=== PATIENT | female | born 1965 | race Caucasian/White ===

== ENCOUNTER 2025-01-23 08:49 | Inpatient (IN) ==
--- NOTE | 2025-01-23 09:31 | Emergency Department Note ---
Impression & Plan Acute confusion ED Provider Note HISTORY OF PRESENT ILLNESS: Patient is a 59-year-old female presenting with confusion and weakness. Patient presented to the ER with a colleague who brought her here. Colleague reports that the patient showed up for work today and was stumbling around and holding onto things and seemed very confused. She reports that patient is normally alert and oriented. Reports her speech seems slower than normal. Patient reports that she has a history of migraines and reports that she has a slight headache. Reports that she sees black spots in her vision, but states this is not abnormal when she gets a migraine headache. Denies any recent falls or head injuries. Denies any chiropractic manipulation of her neck. She reports that "I feel weak and numb all over." Denies any recent changes to medications. Denies any chest pain or shortness of breath. Patient denies any alcohol or drug use. Coworker reports that the patient does not seem like her normal self. ROS: as above PHYSICAL EXAM: Constitutional: Patient appears in no acute distress. HENT: Head: Normocephalic and atraumatic. Eyes: EOMI, PERRL Mouth/Throat: Mucous membranes moist. Neck: Trachea midline. Neck supple. Cardiovascular: RRR, No murmurs, rubs or gallops. Intact distal pulses. Pulmonary/Chest: No respiratory distress. Breath sounds clear and equal bilaterally. No wheezes or rales. Abdominal: Abdomen soft, no tenderness, rebound or guarding. Musculoskeletal: No edema, tenderness or deformity noted. Skin: Warm and dry. No rash, erythema, pallor or cyanosis Psychiatric: Appropriate mood and affect for situation. Neurological: Alert and keenly responsive. Facies symmetric. Able to raise eyebrows, close eyes, smile, puff mouth, stick out tongue, move tongue left and right and raise palate symmetrically. Able to shrug shoulders. PERRLA. SILT to forehead below eye and at jawline. Can hear soft noise bilaterally. Strength 5/5 in bilateral upper and lower extremities. SILT throughout bilateral upper and lower extremities. MDM: - Vitals signs showed hypertension - History obtained via patient and patient's coworker. History as above. - Chronic conditions affecting care: Anxiety; DM-2; HLD; hypothyroidism; GERD; migraine headaches - Differential diagnoses include, but are not limited to: CVA; intracranial hemorrhage; ACS; electrolyte abnormality; pneumonia; viral syndrome; UTI - Order placed for continuous cardiac monitoring. At this time, monitor showed rate of 74 bpm with normal sinus rhythm, per my interpretation. - External medical records reviewed. - EKG image interpreted by myself showed normal sinus rhythm. Rate 72 bpm. QTc 408. No acute ischemic changes. - Laboratory workup interpreted by myself showed slight leukocytosis (WBC 11.35) with neutrophil predominance; normal PT/INR; stable electrolytes; elevated TSH (4.815) with rea T4; negative alcohol - UA negative for infection - UDS negative - CXR image reviewed by myself is negative for pneumonia, per my interpretation. - CT head wo contrast negative for acute pathology - CTA head/neck negative for acute pathology - NIHSS 0 on assessment. Patient is no evidence of large vessel occlusion warranting transfer for thrombectomy. She is not a TNK candidate, as unknown last known well. - Patient given 1g IV tylenol in ER. - On reassessment, significant other is now at bedside reports the patient still does not seem back to her normal baseline. Unclear etiology for the patient's symptoms at this time. Discussed admission to hospital for further evaluation and management to which the patient and her significant other were agreeable. - Discussion was had with case investigator about patient's case and need for admission - Hospitalist consulted for admission - Patient admitted to [facility] for further evaluation and management. ASSESSMENT AND PLAN: Diagnosis: Acute confusion Plan: Discharge Past Med/Surg History Problem List (Updated 01/23/25 @ 12:39 by Cheyenne Calle MD) Acute confusion (Acute) Dyslipidemia (Chronic) GERD (gastroesophageal reflux disease) (Chronic) Anxiety (Chronic) Diabetes (Chronic) Migraine (Chronic) H/O allergy to multiple drugs (Chronic) Allergic rhinitis (Chronic) Hypothyroid (Chronic) Medical History Allergic rhinitis Anxiety Diabetes Dyslipidemia GERD (gastroesophageal reflux disease) H/O allergy to multiple drugs Hypothyroid Migraine Surgical History History of dilatation and curettage History of tonsillectomy and adenoidectomy History of tubal ligation Family History Family/Other Asthma Hypertension Arthritis Stroke Diabetes COPD (chronic obstructive pulmonary disease) Cancer CHF (congestive heart failure) Kidney disease Social History Smoking Status: Never smoker Hx Alcohol Use: No Hx Substance Use: No Preferred Language: Yakut marital status: Feels Safe at Home: Yes Allergies Allergies Allergy/AdvReac Type Severity Reaction Status Date / Time adhesive Allergy Unknown contact Verified 11/18/19 15:13 dermatitis latex Allergy Unknown contact Verified 11/18/19 15:13 dermatitis propoxyphene Allergy Unknown Unknown Verified 11/18/19 15:13 Sulfa (Sulfonamide Allergy Unknown Unknown Verified 11/18/19 15:13 Antibiotics) Home Meds Home Medications Medication Instructions Recorded Confirmed cyanocobalamin (vitamin B-12) 1,000 mcg PO DAILY 02/12/19 11/18/19 1,000 mcg tablet (Vitamin B-12) fluticasone propionate 50 1 spray intranasal DAILY 02/12/19 11/18/19 mcg/actuation nasal spray,suspension (Flonase Allergy Relief) levothyroxine 75 mcg capsule 75 mcg PO DAILY 02/12/19 11/18/19 omeprazole 40 mg capsule,delayed 40 mg PO DAILY 02/12/19 11/18/19 release progesterone micronized 100 mg 100 mg vaginal Q OTHER DAY 02/12/19 11/18/19 capsule (Prometrium) propranolol 40 mg tablet 40 mg PO DAILY 02/12/19 11/18/19 sumatriptan succinate 100 mg 100 mg PO UD PRN Migraine Headache 02/12/19 11/18/19 tablet (Imitrex) vitamin B complex 1 tab PO DAILY 02/12/19 11/18/19 albuterol sulfate 0.63 mg/3 mL 0.63 mg inhalation QID PRN 09/22/19 11/18/19 solution for nebulization albuterol sulfate 90 mcg/actuation 2 puffs inhalation Q4H PRN 09/22/19 11/18/19 breath activated powder inhaler,sensor citalopram 40 mg tablet 40 mg PO DAILY 09/22/19 11/18/19 Lactobacillus acidophilus 2 ea PO 11/18/19 11/18/19 atorvastatin 40 mg tablet 40 mg PO .COMPLEX 11/18/19 11/18/19 multivitamin 2 tab PO DAILY 11/18/19 11/18/19 Previous Rx's Medication Instructions Recorded ipratropium bromide 42 mcg (0.06 2 spray intranasal TID #15 mL 10/28/19 %) nasal spray hydroxyzine HCl 25 mg tablet 25 mg PO .qhs itching #30 tabs 11/18/19 olopatadine 0.1 % eye drops 1 drops ophthalmic (eye) BID #5 mL 11/18/19 (Patanol) Results & Data (ED) Vital Signs Vital Signs - 24 hr 01/23/25 08:56 01/23/25 08:56 01/23/25 09:00 Temperature 37.0 C Temperature Source Oral Pulse Rate 75 Pulse Rate from SpO2 Sensor Pulse Rhythm Respiratory Rate 21 Respiratory Effort / Characteristics Non-Labored Spontaneous Respiratory Depth Normal Blood Pressure 172/98 H 172/98 H 177/105 H Blood Pressure Mean 122 122 140 Pulse Oximetry 96 Oxygen Delivery Method Room Air Sepsis Recent Fever Within 48 Hours No Sepsis New/Unexplained Change in Mental Status N/A Sepsis Action Taken by Nursing No Action Required 01/23/25 09:01 01/23/25 09:01 01/23/25 09:12 Temperature Temperature Source Pulse Rate 75 75 73 Pulse Rate from SpO2 Sensor 73 Pulse Rhythm Regular Respiratory Rate 21 19 Respiratory Effort / Characteristics Respiratory Depth Blood Pressure Blood Pressure Mean Pulse Oximetry 96 95 Oxygen Delivery Method Room Air Sepsis Recent Fever Within 48 Hours Sepsis New/Unexplained Change in Mental Status Sepsis Action Taken by Nursing 01/23/25 09:33 01/23/25 10:00 01/23/25 10:36 Temperature Temperature Source Pulse Rate 74 70 74 Pulse Rate from SpO2 Sensor 74 70 75 Pulse Rhythm Respiratory Rate 24 22 21 Respiratory Effort / Characteristics Respiratory Depth Blood Pressure 141/82 H 145/93 H Blood Pressure Mean 101 115 Pulse Oximetry 95 94 96 Oxygen Delivery Method Sepsis Recent Fever Within 48 Hours Sepsis New/Unexplained Change in Mental Status Sepsis Action Taken by Nursing 01/23/25 11:00 01/23/25 11:30 Temperature Temperature Source Pulse Rate 72 74 Pulse Rate from SpO2 Sensor 72 75 Pulse Rhythm Respiratory Rate 22 24 Respiratory Effort / Characteristics Respiratory Depth Blood Pressure 136/77 128/88 Blood Pressure Mean 96 115 Pulse Oximetry 94 95 Oxygen Delivery Method Sepsis Recent Fever Within 48 Hours Sepsis New/Unexplained Change in Mental Status Sepsis Action Taken by Nursing Laboratory Data 01/23/25 09:15 01/23/25 09:15 Lab Results 01/23/25 01/23/25 01/23/25 Range/Units 08:56 09:15 09:25 WBC 11.35 H (4.8-10.8) K/ul RBC 4.89 (4.20-5.40) M/uL Hgb 15.3 (12.0-16.0) g/dl Hct 46.0 (37.0-47.0) % MCV 94.1 (80.0-100.0) fL MCH 31.3 (25.0-34.0) pg MCHC 33.3 (32.0-36.0) g/dL RDW Std Deviation 45.2 (36.4-46.3) fL RDW Coeff of Latrice 13.2 (11.5-14.5) % Plt Count 376 (130-400) K/uL MPV 9.9 (9.4-12.4) fL Immature Gran % (Auto) 0.4 % Neut % (Auto) 67.9 % Lymph % (Auto) 24.6 % Nye % (Auto) 5.0 % Eos % (Auto) 1.7 % Baso % (Auto) 0.4 % Neut # (Auto) 7.70 H (1.40-6.50) K/uL Lymph # (Auto) 2.79 (1.20-3.40) K/uL Nye # (Auto) 0.57 (0.11-0.59) K/uL Eos # (Auto) 0.19 (0.00-0.50) K/uL Baso # (Auto) 0.05 (0.00-0.20) K/uL Immature Gran # (Auto) 0.05 (0.01-0.20) K/uL PT 10.3 (9.0-12.0) Seconds INR 0.9 (0.9-1.1) Sodium 138 (136-145) mmol/L Potassium 4.0 (3.5-5.1) mmol/L Chloride 104 (98-107) mmol/L Carbon Dioxide 27 (21-32) mmol/L Anion Gap 7 (3-11) BUN 15 (6-23) mg/dl Creatinine 0.97 (0.6-1.2) mg/dl Est Cr Clr Drug Dosing 68.1 ml/min eGFR 66.48 BUN/Creatinine Ratio 15.5 (10-20) Glucose 177 H (70-99(Fasting)) mg/dl POC Glucose 290 H (70-99) mg/dl Calcium 9.2 (8.6-10.3) mg/dl Magnesium 2.0 (1.7-2.4) mg/dl Total Bilirubin 0.4 (0.2-1.0) mg/dl AST 13 (13-39) U/L ALT 12 (7-52) U/L Alkaline Phosphatase 68 (34-104) U/L Troponin I High Sens 2.5 (0-14) pg/ml Total Protein 7.3 (6.0-8.3) gm/dl Albumin 4.7 (3.4-5.0) gm/dl Globulin 2.6 (2.5-4.0) gm/dl Albumin/Globulin Ratio 1.8 (0.9-2) TSH 4.815 H (0.300-4.500) uIu/ml Free T4 1.04 (0.61-1.60) ng/dl Urine Color Dark Yellow Urine Appearance Clear (Clear) Urine pH 7.5 (4.5-7.5) Ur Specific Taylor 1.026 (1.000-1.030) Urine Protein Negative (Negative) Urine Glucose (UA) 3+ H (Negative) Urine Ketones Trace H (Negative) Urine Blood Negative (Negative) Urine Nitrite Negative (Negative) Urine Bilirubin Negative (Negative) Urine Urobilinogen Positive H (Negative) Ur Leukocyte Esterase Negative (Negative) Urine Opiates Screen Neg (Neg) Ur Methadone, Qual Neg (Neg) Urine Fentanyl Screen Neg (Neg) Urine Barbiturates Neg (Neg) Ur Phencyclidine (PCP) Neg (Neg) U Amphetamin/Meth Scrn Neg (Neg) MDMA (Ecstasy) Screen Neg (Neg) U Benzodiazepines Scrn Neg (Neg) Ur Cocaine Metabolite Neg (Neg) U Marijuana (THC) Screen Neg (Neg) Ethyl Alcohol mg/dL < 10.0 (<10.0) mg/dl Administered Medications Discontinued Medications Acetaminophen (Ofirmev) 1,000 mg in 100 mls @ 400 mls/hr IV NOW STA Stop: 01/23/25 12:04 Last Admin: 01/23/25 12:05 Dose: 400 mls/hr Documented By: DARLEEN Ioversol (Optiray 320 125ml) 119 ml IV ONCE ONE Stop: 01/23/25 10:29 Last Admin: 01/23/25 10:28 Dose: 119 ml Documented By: YANELI Imaging Data Radiologist's Impression: Chest X-Ray 01/23/25 09:01 XR chest 1V portable CLINICAL HISTORY: confusion COMPARISON STUDY: None FINDINGS: Heart size and pulmonary vasculature are normal. No effusion, consolidation, or pneumothorax. IMPRESSION: No acute findings. ACT 112: Negative or not required by law. Electronically signed by: Brandan Maya M.D. 01/23/2025 9:[address] 01/23/25 09:01 CT SCAN OF THE BRAIN WITHOUT IV CONTRAST CLINICAL HISTORY: Weakness, numbness and headache. COMPARISON STUDY: Head CT September 30, 2021. TECHNIQUE: Unenhanced axial CT scan of the brain was performed from the vertex to the skull base. A dose lowering technique was utilized adhering to the principles of ALARA. FINDINGS: Brain parenchyma: No acute intracranial hemorrhage, midline shift or mass effect is present. Sauceda-white matter differentiation is preserved. There are no extra- axial fluid collections. There are no findings to suggest acute dural sinus thrombosis or acute territorial infarct. Ventricles, sulci, cisterns: There is no hydrocephalus. The basal cisterns are patent. Calvarium: Unremarkable. Sinuses and mastoids: There is mild mucosal thickening of the right sphenoid sinus and mild right ethmoid sinus mucosal thickening. The mastoid air cells are well pneumatized. Orbits: The bony orbits are grossly intact. IMPRESSION: No acute intracranial findings. ACT 112: Negative or not required by law. Electronically signed by: Power Delarosa M.D. 01/23/2025 10:39 AM Head CTA 01/23/25 09:01 CTA ANGIOGRAPHY OF THE HEAD CLINICAL HISTORY: confusion; weakness COMPARISON STUDY: Head CT September 30, 2021. TECHNIQUE: Helical axial images of the head were obtained following uneventful intravenous administration of 119 cc of Optiray. Sagittal and coronal reconstructions were viewed as well as maximal intensity projections on an independent 3-D workstation. Automated exposure control was utilized for the study. A dose lowering technique was utilized adhering to the principles of ALARA. FINDINGS: Please note that the head CT will be reported separately. No acute intracranial hemorrhage, midline shift or mass effect is present. Ventricular system is normal. Basal cisterns are patent. There are no extra-axial collections. The bilateral M1, M2, A1 and A2 segments are patent. No intracranial aneurysm, dissection or stenosis. The posterior circulation is also intact. IMPRESSION: Unremarkable CTA of the head. ACT 112: Negative or not required by law. Electronically signed by: Power Delarosa M.D. 01/23/2025 11:22 AM Neck CTA 01/23/25 09:01 CT ANGIOGRAPHY OF THE NECK WITH CONTRAST CLINICAL HISTORY: confusion; weakness COMPARISON STUDY: CT of the cervical spine September 30, 2021. Technique: CT angiography of the carotid and vertebral arteries was obtained using Optiray and 3D reconstruction on an independent workstation. NASCET criteria was utilized. Automated exposure control was utilized for the study. A dose lowering technique was utilized adhering to the principles of ALARA. CT DOSE: 999.42 mGy.cm Findings: Visualized portions of the lung apices are unremarkable. There is no cervical spine fracture. No cervical lymphadenopathy is identified. The bilateral common carotid, cervical internal carotid and vertebral arteries are patent. There is no stenosis, dissection or aneurysm within the neck. IMPRESSION: Unremarkable CTA of the neck. ACT 112: Negative or not required by law. Electronically signed by: Power Delarosa M.D. 01/23/2025 11:20 AM Discharge Plan Visit Data Chief Complaint: Weakness Stated Complaint: NUMBNESS, WEAK, TIA SYMPTOMS ED Provider: Cheyenne Calle Discharge Problem: Acute confusion Patient Disposition: Admitted As Inpatient Condition: Fair Forms Stand Alone Forms: [facility] Prescriptions Prescriptions: No Action ipratropium bromide 42 mcg (0.06 %) spray,non-aerosol 2 spray INTNAS TID Qty: 15 11RF albuterol sulfate 90 mcg/actuation aero powdr breath act w/sensor 2 puffs INH Q4H PRN albuterol sulfate 0.63 mg/3 mL solution for nebulization 0.63 mg INH QID PRN citalopram 40 mg tablet 40 mg PO DAILY atorvastatin 40 mg tablet 40 mg PO .COMPLEX Rx Instructions: 40 mg PO Take 1/2 tab Daily; Lactobacillus acidophilus 2 ea PO hydroxyzine HCl 25 mg tablet 25 mg PO .qhs Qty: 30 11RF olopatadine [Patanol] 0.1 % drops 1 drops OP BID Qty: 5 11RF Rx Instructions: separate doses by at least 6-8 hours sumatriptan succinate [Imitrex] 100 mg Tablet 100 mg PO UD PRN (Reason: Migraine Headache) cyanocobalamin (vitamin B-12) [Vitamin B-12] 1,000 mcg Tablet 1,000 mcg PO DAILY omeprazole 40 mg Capsule,Delayed Release(Dr/Ec) 40 mg PO DAILY propranolol 40 mg Tablet 40 mg PO DAILY vitamin B complex Tablet 1 tab PO DAILY fluticasone propionate [Flonase Allergy Relief] 50 mcg/actuation [place]iden,Suspension 1 spray INTRANASAL DAILY progesterone micronized [Prometrium] 100 mg Capsule 100 mg vaginal Q OTHER DAY levothyroxine 75 mcg Capsule 75 mcg PO DAILY multivitamin Tablet 2 tab PO DAILY Referrals Referrals: Jasmyn Corral M.D. [Primary Care Provider] -
--- NOTE | 2025-01-23 09:37 | XRay Report ---
XR chest 1V portable CLINICAL HISTORY: confusion COMPARISON STUDY: None FINDINGS: Heart size and pulmonary vasculature are normal. No effusion, consolidation, or pneumothora x. IMPRESSION: No acute findings. ACT 112: Negative or not required by law. Electronically signed by: Brandan Maya M.D. 01/23/2025 9:36 AM
[2025-01-23 09:54] LABS: Appearance Urine Clear (Clear); Bilirubin Urine Negative (Negative); Blood Urine Negative (Negative); Color Urine Dark Yellow; Glucose Urine UA 3+ (Negative); Ketones Urine Trace (Negative); Leukocyte Esterase Urine Negative (Negative); Nitrite Urine Negative (Negative); Protein Urine Negative (Negative); Specific Gravity Urine 1.026 (1.000-1.030); Urobilinogen Urine Positive (Negative); pH Urine 7.5 (4.5-7.5)
[2025-01-23 09:56] LABS: Basophils # (auto) 0.05 K/uL (0.00-0.20); Basophils % (auto) 0.4 %; Eosinophils # (auto) 0.19 K/uL (0.00-0.50); Eosinophils % (auto) 1.7 %; Hemoglobin 15.3 g/dl (12.0-16.0); Immature Granulocytes # (auto) 0.05 K/uL (0.01-0.20); Immature Granulocytes % (auto) 0.4 %; Lymphocytes # (auto) 2.79 K/uL (1.20-3.40); Lymphocytes % (auto) 24.6 %; Mean Corpuscular Hemoglobin 31.3 pg (25.0-34.0); Mean Corpuscular Hgb Conc 33.3 g/dL (32.0-36.0); Mean Corpuscular Volume 94.1 fL (80.0-100.0); Mean Platelet Volume 9.9 fL (9.4-12.4); Monocytes # (auto) 0.57 K/uL (0.11-0.59); Neutrophils % (auto) 67.9 %; Platelet Count 376 K/uL (130-400); RDW Coefficient of Variation 13.2 % (11.5-14.5); RDW Standard Deviation 45.2 fL (36.4-46.3); Red Blood Count 4.89 M/uL (4.20-5.40); White Blood Count 11.35 K/ul (4.8-10.8)
[2025-01-23 10:12] LABS: Albumin Globulin Ratio 1.8 (0.9-2); Albumin Level 4.7 gm/dl (3.4-5.0); BUN Creatinine Ratio 15.5 (10-20); Bilirubin,Total 0.4 mg/dl (0.2-1.0); Calcium 9.2 mg/dl (8.6-10.3); Creatinine Clr Calc Pharmacy 68.1 ml/min; Globulin 2.6 gm/dl (2.5-4.0); Total Protein 7.3 gm/dl (6.0-8.3)
[2025-01-23 10:19] LABS: Troponin I High Sensitivity 2.5 pg/ml (0-14)
[2025-01-23 10:25] LABS: INR 0.9 (0.9-1.1); Prothrombin Time 10.3 Seconds (9.0-12.0)
[2025-01-23 10:28] LABS: Thyroid Stimulating Hormone 4.815 uIu/ml (0.300-4.500)
[2025-01-23] MEDS: OPTIRAY 320 125ml IV ONE (10:28)
[2025-01-23 10:38] LABS: Amphetamines+Metham, Urine Neg (Neg); Barbiturates, Urine Neg (Neg); Benzodiazepine, Urine Neg (Neg); Cocaine, Urine Neg (Neg); Fentanyl, Urine Neg (Neg); MDMA (Ecstacy), Urine Neg (Neg); Marijuana, Urine Neg (Neg); Methadone, Urine Neg (Neg); Opiate, Urine Neg (Neg); Phencyclidine, Urine Neg (Neg)
--- NOTE | 2025-01-23 10:41 | CT Scan Report ---
CT SCAN OF THE BRAIN WITHOUT IV CONTRAST CLINICAL HISTORY: Weakness, numbness and headache. COMPARISON STUDY: Head CT September 30, 2021. TECHNIQUE: Unenhanced axial CT scan of the brain was performed from the vertex to the skull base. A dose lowering technique was utilized adhering to the principles of ALARA. FINDINGS: Brain parenchyma: No acute intracranial hemorrhage, midline shift or mass effect is present. Sauceda-whi te matter differentiation is preserved. There are no extra-axial fluid collections. There are no find ings to suggest acute dural sinus thrombosis or acute territorial infarct. Ventricles, sulci, cisterns: There is no hydrocephalus. The basal cisterns are patent. Calvarium: Unremarkable. Sinuses and mastoids: There is mild mucosal thickening of the right sphenoid sinus and mild right eth moid sinus mucosal thickening. The mastoid air cells are well pneumatized. Orbits: The bony orbits are grossly intact. IMPRESSION: No acute intracranial findings. ACT 112: Negative or not required by law. Electronically signed by: Power Delarosa M.D. 01/23/2025 10:39 AM
[2025-01-23 11:03] LABS: T4 Free Thyroxine 1.04 ng/dl (0.61-1.60)
--- NOTE | 2025-01-23 11:22 | CT Scan Report ---
CT ANGIOGRAPHY OF THE NECK WITH CONTRAST CLINICAL HISTORY: confusion; weakness COMPARISON STUDY: CT of the cervical spine September 30, 2021. Technique: CT angiography of the carotid and vertebral arteries was obtained using Optiray and 3D rec onstruction on an independent workstation. NASCET criteria was utilized. Automated exposure control was utilized for the study. A dose lowering technique was utilized adhering to the principles of ALA RA. CT DOSE: 999.42 mGy.cm Findings: Visualized portions of the lung apices are unremarkable. There is no cervical spine fractur e. No cervical lymphadenopathy is identified. The bilateral common carotid, cervical internal carotid and vertebral arteries are patent. There is no stenosis, dissection or aneurysm within the neck. IMPRESSION: Unremarkable CTA of the neck. ACT 112: Negative or not required by law. Electronically signed by: Power Delarosa M.D. 01/23/2025 11:20 AM
--- NOTE | 2025-01-23 11:24 | CT Scan Report ---
CTA ANGIOGRAPHY OF THE HEAD CLINICAL HISTORY: confusion; weakness COMPARISON STUDY: Head CT September 30, 2021. TECHNIQUE: Helical axial images of the head were obtained following uneventful intravenous administr ation of 119 cc of Optiray. Sagittal and coronal reconstructions were viewed as well as maximal inten sity projections on an independent 3-D workstation. Automated exposure control was utilized for the study. A dose lowering technique was utilized adhering to the principles of ALARA. FINDINGS: Please note that the head CT will be reported separately. No acute intracranial hemorrhage, midline shift or mass effect is present. Ventricular system is normal. Basal cisterns are patent. Th ere are no extra-axial collections. The bilateral M1, M2, A1 and A2 segments are patent. No intracran ial aneurysm, dissection or stenosis. The posterior circulation is also intact. IMPRESSION: Unremarkable CTA of the head. ACT 112: Negative or not required by law. Electronically signed by: Power Delarosa M.D. 01/23/2025 11:22 AM
[2025-01-23] MEDS: ACETAMINOPHEN 1,000 MG/100 ML VIAL IV STA (12:05)
--- NOTE | 2025-01-23 14:35 | History & Physical Report ---
Date of Service January 23, 2025 Assessment & Plan (1) Acute confusion: Plan: 59 year old female with PMH DM Type II, Asthma, Hypothyroidism, Migraines presenting with weakness, confusion, fatigue. Brought to the ED by co-workers for stumbling gait, slow to respond to questions for several hours and possible numbness stating her legs felt heavy. Has been ill for several months including Flu A+ in October, then developed Bronchitis and treated with Azithromycin with brief relief of symptoms. Covid neg during this time. She was prescribed 3 separate courses of Prednisone since late October with the last dose finishing yesterday. Reports frontal headache,worse with leaning forward, fever, productive cough, N/V, ear pain. Symptoms not improving with OTC mucinex, dayquil, nyquil. Has been taking these for over 1 week. Denies recent medication changes, falls, head injuries, dizziness, vision/hearing changes, memory issues, numbness/tingling, difficulty walking, sick contacts, chest pain, swelling, difficulty breathing, SOB, diarrhea, urinary symptoms, skin changes, bleeding issues. Acute Confusion: * Acute confusion likely in the setting of stroke vs illness * Initiate Stroke protocol: Echo, lipids, VBG, Phos, Mag * Echo ordered- pending * MRI of Head w/wo contrast for further stroke workup * Neuro checks Q4 hours and as needed * Given prolonged illness and mildly elevated WBC 11.35- it is reasonable to investigate alternate sources of confusion- Biofire ordered * XRay Sinus ordered with report of maxillary sinus pain * Other labs to obtain- ammonia, procalcitonin, lyme * IV fluids NSS scheduled for rehydration * Consider antibiotics pending labs and further imaging (2) Dyslipidemia: Plan: Dyslipidemia: * Lipids pending * Continue home statin therapy (3) Diabetes: Plan: Diabetes * Hold Ozempic, last given last week * Random glucose elevated in the ED most likely from prolonged steroid treatment * Previous A1C unknown- patient reports history of oral anti-diabetics med management without insulin * Will check A1C in the morning (4) Hypothyroid: Plan: Hypothyroidism: * Continue home levothyroxine * TSH 4.8, free T4 normal Plan DVT Ppx: SCD-Hermes stockings Code status: Full PCP: Receives care via [facility] Dispo: Admit to [facility] Tele Patient seen in collaboration with _Dr. Colon_. Please see addendum.I spent a total of 78 minutes coordinating, documenting and providing care for this patient excluding time spent in the performance of separately billed services or time spent by another provider/QHP. History of Present Illness Chief Complaint: Confusion Primary Care Provider: Jasmyn Corral 59 year old female with PMH DM Type II, Asthma, Hypothyroidism, Migraines presenting with weakness, confusion, fatigue. Brought to the ED by co-workers for stumbling gait, slow to respond to questions for several hours and possible numbness stating her legs felt heavy. Has been ill for several months including Flu A+ in October, then developed Bronchitis and treated with Azithromycin with brief relief of symptoms. Covid neg during this time. She was prescribed 3 separate courses of Prednisone since late October with the last dose finishing yesterday. Reports frontal headache,worse with leaning forward, fever, productive cough, N/V, ear pain. Symptoms not improving with OTC mucinex, dayquil, nyquil. Has been taking these for over 1 week. Denies recent medication changes, falls, head injuries, dizziness, vision/hearing changes, memory issues, numbness/tingling, difficulty walking, sick contacts, chest pain, swelling, difficulty breathing, SOB, diarrhea, urinary symptoms, skin changes, bleeding issues. In the emergency department, she was slow to respond to questions, confused, weak, and reporting numbness. Hemodynamically stable with a mild elevation in WB C 11.35. Random gluc elevated, possibly following extended course of steroids. UA without signs of infection and with dehydration. Chest Xray negative. Head CT with no acute intracranial findings. Head and Neck CTA unremarkable. Although initially the patient presented with an acute change in mental status, her cognition improved by the time of my exam. She had a harsh, nonproductive cough with no associated hypoxia or distress. She reported maxillary sinus pressure, facial pain, and ear pain warranting further workup with Biofire, Sinus Xray. History obtained from the patient and via external, electronic chart review for medication reconcile; the patient provided her EMR with the [facility]. Allergies Allergy/AdvReac Type Severity Reaction Status Date / Time metronidazole Allergy Severe Hives/Blist Unverified 01/23/25 13:58 ers acetaminophen Allergy Unknown Unknown - Unverified 01/23/25 13:58 [From Darvocet-N] On med list w/ [facility] adhesive Allergy Unknown contact Verified 01/23/25 13:58 dermatitis estrogens, conjugated Allergy Unknown Unknown - Unverified 01/23/25 13:58 [From Premarin] On med [facility] latex Allergy Unknown contact Verified 01/23/25 13:58 dermatitis Penicillins Allergy Unknown Unknown - Unverified 01/23/25 13:58 On med list / [facility] propoxyphene Allergy Unknown Unknown Verified 01/23/25 13:58 Sulfa (Sulfonamide Allergy Unknown Unknown Verified 01/23/25 13:58 Antibiotics) Home Medications Medication Instructions Recorded Confirmed Type fluticasone propionate 50 1 spray intranasal DAILY 02/12/19 01/23/25 History mcg/actuation nasal spray,suspension (Flonase Allergy Relief) progesterone micronized 100 mg 100 mg PO QAM 02/12/19 01/23/25 History capsule (Prometrium) propranolol 40 mg tablet 40 mg PO DAILY 02/12/19 01/23/25 History vitamin B complex 1 tab PO QAM 02/12/19 01/23/25 History multivitamin 1 tab PO DAILY 11/18/19 01/23/25 History Lactobacillus acidophilus 1 2,000 mmu cells PO BID 01/23/25 01/23/25 History billion cell tablet ascorbic acid (vitamin C) 1,000 mg 1 g PO Q OTHER DAY 01/23/25 01/23/25 History tablet (Vitamin C) atomoxetine 80 mg capsule 80 mg PO QAM 01/23/25 01/23/25 History (Strattera) atorvastatin 80 mg tablet 40 mg PO HS 01/23/25 01/23/25 History biotin 5,000 mcg sublingual tablet 5,000 mcg sublingual QA 01/23/25 01/23/25 History cetirizine 10 mg tablet (Zyrtec) 10 mg PO DAILY 01/23/25 01/23/25 History coQ10 (ubiquinol) 200 mg capsule 400 mg PO QA 01/23/25 01/23/25 History fluoxetine 20 mg capsule 20 mg PO DAILY 01/23/25 01/23/25 History levothyroxine 88 mcg tablet 88 mcg PO DAILYBB 01/23/25 01/23/25 History montelukast 10 mg tablet 10 mg PO QAM 01/23/25 01/23/25 History olopatadine 0.1 % eye drops 1 drp ophthalmic (eye) BID 01/23/25 01/23/25 History omeprazole 20 mg capsule,delayed 40 mg PO DAILY 01/23/25 01/23/25 History release psyllium husk 0.52 gram capsule 0.52 g PO QAM 01/23/25 01/23/25 History (Fiber-Caps (psyllium husk)) semaglutide (weight loss) 2.4 2 mg subcut Q7D 01/23/25 01/23/25 History mg/0.75 mL subcutaneous pen injector (Wegovy) simethicone 80 mg chewable tablet 80 mg PO ACHS 01/23/25 01/23/25 History tiotropium 2.5 mcg-olodaterol 2.5 2 puff inhalation DAILY 01/23/25 01/23/25 History mcg/actuation mist for inhalation (Stiolto Respimat) zinc acetate 50 mg (zinc) capsule 50 mg PO QAM 01/23/25 01/23/25 History Past Med/Surg History Problem List Acute confusion (Acute) Dyslipidemia (Chronic) GERD (gastroesophageal reflux disease) (Chronic) Anxiety (Chronic) Diabetes (Chronic) Migraine (Chronic) H/O allergy to multiple drugs (Chronic) Allergic rhinitis (Chronic) Hypothyroid (Chronic) Surgical History History of dilatation and curettage History of tubal ligation History of tonsillectomy and adenoidectomy Family History Family/Other Asthma Hypertension Arthritis Stroke Diabetes COPD (chronic obstructive pulmonary disease) Cancer CHF (congestive heart failure) Kidney disease Social History Smoking Status: Never smoker Hx Alcohol Use: No Hx Substance Use: No Preferred Language: Turkish marital status: Feels Safe at Home: Yes Review of Systems Review of Systems: All systems reviewed & are unremarkable except as noted in HPI & below Physical Exam Physical Exam: VITALS: Reviewed. WEIGHT/BMI reviewed. GEN: Healthy appearing, well-developed, NAD. PSYCH: Good Judgment. AOx3. Normal memory, mood, and affect. HEENT -Head: NC/AT; -Eyes: PERRL, EOMI. No discharge or redn ess; -Ears: External ears are normal. -Nose: Normal nares. No active rhinorrhe a. -Mouth and throat: MMM. Normal gums, muc krupa, palate,. Good dentition. NECK: Supple, with no masses. CV: RRR, no m/r/g. No peripheral swelling. Pulses strong throughout. LUNGS: CTAB, no w/r/c. Pulse ox stable on room air. Harsh cough, nonproductive. ABD: Soft, NT/ND, NBS, no masses or organomegaly. : N/A SKIN: Warm, well perfused. No skin rashes or abnormal lesions. MSK: No deformities EXT: No clubbing, cyanosis, or edema. NEURO: Normal muscle strength and tone. No focal deficits. Facial symmetry noted. CN II-XII grossly intact. Results & Data Results & Data Vital Signs (Past 12 Hours) Vital Signs Temp Pulse Resp BP Pulse Ox O2 Del Method 01/23/25 14:00 72 20 140/81 91 01/23/25 13:39 82 17 126/74 98 01/23/25 13:06 79 01/23/25 13:00 80 15 99/59 L 97 01/23/25 12:03 79 17 137/85 96 01/23/25 11:30 74 24 128/88 95 01/23/25 11:00 72 22 136/77 94 01/23/25 10:36 74 21 96 01/23/25 10:00 70 22 145/93 H 94 01/23/25 09:33 74 24 141/82 H 95 01/23/25 09:12 73 19 95 01/23/25 09:01 75 21 96 Room Air 01/23/25 09:01 75 01/23/25 09:00 177/105 H 01/23/25 08:56 172/98 H 01/23/25 08:56 37.0 C 75 21 172/98 H 96 Room Air Laboratory Results Short CBC 01/23/25 Range/Units 09:15 WBC 11.35 H (4.8-10.8) K/ul Hgb 15.3 (12.0-16.0) g/dl Hct 46.0 (37.0-47.0) % Plt Count 376 (130-400) K/uL BMP 01/23/25 09:15 Sodium 138 Potassium 4.0 Chloride 104 Carbon Dioxide 27 BUN 15 Creatinine 0.97 Glucose 177 H Calcium 9.2 Liver Function 01/23/25 Range/Units 09:15 Total Bilirubin 0.4 (0.2-1.0) mg/dl AST 13 (13-39) U/L ALT 12 (7-52) U/L Alkaline Phosphatase 68 (34-104) U/L Albumin 4.7 (3.4-5.0) gm/dl Urine 01/23/25 Range/Units 09:25 Urine Color Dark Yellow Urine Appearance Clear (Clear) Urine pH 7.5 (4.5-7.5) Ur Specific Success 1.026 (1.000-1.030) Urine Protein Negative (Negative) Urine Glucose (UA) 3+ H (Negative) Diagnostic Findings Chest X-Ray 01/23/25 09:01 XR chest 1V portable CLINICAL HISTORY: confusion COMPARISON STUDY: None FINDINGS: Heart size and pulmonary vasculature are normal. No effusion, consolidation, or pneumothorax. IMPRESSION: No acute findings. ACT 112: Negative or not required by law. Electronically signed by: Brandan Maya M.D. 01/23/2025 9:[address] 01/23/25 09:01 CT SCAN OF THE BRAIN WITHOUT IV CONTRAST CLINICAL HISTORY: Weakness, numbness and headache. COMPARISON STUDY: Head CT September 30, 2021. TECHNIQUE: Unenhanced axial CT scan of the brain was performed from the vertex to the skull base. A dose lowering technique was utilized adhering to the principles of ALARA. FINDINGS: Brain parenchyma: No acute intracranial hemorrhage, midline shift or mass effect is present. Sauceda-white matter differentiation is preserved. There are no extra- axial fluid collections. There are no findings to suggest acute dural sinus thrombosis or acute territorial infarct. Ventricles, sulci, cisterns: There is no hydrocephalus. The basal cisterns are patent. Calvarium: Unremarkable. Sinuses and mastoids: There is mild mucosal thickening of the right sphenoid sinus and mild right ethmoid sinus mucosal thickening. The mastoid air cells are well pneumatized. Orbits: The bony orbits are grossly intact. IMPRESSION: No acute intracranial findings. ACT 112: Negative or not required by law. Electronically signed by: Power Delarosa M.D. 01/23/2025 10:39 AM Head CTA 01/23/25 09:01 CTA ANGIOGRAPHY OF THE HEAD CLINICAL HISTORY: confusion; weakness COMPARISON STUDY: Head CT September 30, 2021. TECHNIQUE: Helical axial images of the head were obtained following uneventful intravenous administration of 119 cc of Optiray. Sagittal and coronal reconstructions were viewed as well as maximal intensity projections on an independent 3-D workstation. Automated exposure control was utilized for the study. A dose lowering technique was utilized adhering to the principles of ALARA. FINDINGS: Please note that the head CT will be reported separately. No acute intracranial hemorrhage, midline shift or mass effect is present. Ventricular system is normal. Basal cisterns are patent. There are no extra-axial collections. The bilateral M1, M2, A1 and A2 segments are patent. No intracranial aneurysm, dissection or stenosis. The posterior circulation is also intact. IMPRESSION: Unremarkable CTA of the head. ACT 112: Negative or not required by law. Electronically signed by: Power Delarosa M.D. 01/23/2025 11:22 AM Neck CTA 01/23/25 09:01 CT ANGIOGRAPHY OF THE NECK WITH CONTRAST CLINICAL HISTORY: confusion; weakness COMPARISON STUDY: CT of the cervical spine September 30, 2021. Technique: CT angiography of the carotid and vertebral arteries was obtained using Optiray and 3D reconstruction on an independent workstation. NASCET criteria was utilized. Automated exposure control was utilized for the study. A dose lowering technique was utilized adhering to the principles of ALARA. CT DOSE: 999.42 mGy.cm Findings: Visualized portions of the lung apices are unremarkable. There is no cervical spine fracture. No cervical lymphadenopathy is identified. The bilateral common carotid, cervical internal carotid and vertebral arteries are patent. There is no stenosis, dissection or aneurysm within the neck. IMPRESSION: Unremarkable CTA of the neck. ACT 112: Negative or not required by law. Electronically signed by: Power Delarosa M.D. 01/23/2025 11:20 AM Sinuses X-Ray 01/23/25 14:11 XR sinus min 3V routine CLINICAL HISTORY: congestion, cough COMPARISON STUDY: Head CT earlier today FINDINGS: The mild mucosal thickening in the right sphenoid air cell seen on the CT earlier today is not visualized by plain film. Paranasal sinuses appear grossly clear. IMPRESSION: Grossly clear paranasal sinuses. ACT 112: Negative or not required by law. Electronically signed by: Brandan aMya M.D. 01/23/2025 3:53 PM Code Status & VTE Plan Code Status Full Code VTE Prophylaxis Plan VTE Prophylaxis will be ordered: Yes Supervising Physician Co-Signing Physician Notes Patient is a 59-year-old female with history of asthma, diabetes mellitus diet- controlled, hypothyroidism, migraine, mood disorder, GERD and other medical problems presents with multiple complaints. She states having ongoing cough, sinus congestion, rhinitis, headache, nausea, vomiting, since many days. She states that she was diagnosed to have influenza A in October and since that time she continued to have bronchitis symptoms. She completed azithromycin course and 3 separate courses of prednisone without much improvement. She was brought into ED today by her coworker for change in mental status, stumbling gait. She describes as "haziness". She also was noted to have slow speech. On my encounter, patient is oriented and she denied no focal weakness, dysarthria, odynophagia, dysphagia, facial deformity. She admits to have some generalized numbness and heaviness of her legs. Please review HPI for complete details of presentation. I personally reviewed blood work and imaging studies. Blood work showed leukocytosis 11.35K, glucose 177, phosphorus 2.0, ammonia normal. TSH mildly elevated, free T4 normal. Procalcitonin, B12 pending. Serology positive for parainfluenza. CT head, CTA head and neck, chest x-ray showed no acute process. Sinus x-ray showed grossly clear paranasal sinuses. EKG showed normal sinus rhythm, QTc 446. Physical Exam: Vitals signs as noted above General Appearance:Moderately built and nourished, no apparent distress Head: normocephalic, Atraumatic, maxillary sinus tender Eyes: normal inspection, EOMI Neck: supple, Trachea midline Respiratory/Chest: Normal breath sounds, CTA, No accessory muscle use Cardiovascular: S1, S2, No murmur, tachycardia Abdomen/GI:Soft, Non tender, Bowel sounds present Extremities/Musculoskeletal:normal inspection, no edema Neurologic/Psych:AAOX3, grossly no focal neurological deficits Skin: normal color, warm Acute bronchitis due to parainfluenza infection Generalized weakness secondary to above Suspected sinusitis Strokelike symptoms--less likely CVA Hypophosphatemia Patient is saturating well on room air Empirically will start on Augmentin Conservative management for parainfluenza infection MRI brain to rule out CVA Leukocytosis likely due to recent prednisone use Lyme screen, B12, procalcitonin, HbA1c pending Will also order an echo, lipid panel for completeness Consider aspirin if MRI suggestive of CVA Replete electrolytes as needed I personally interviewed and examined the patient at bedside. I have reviewed the advanced practitioner's documentation on the date of service referred in note and agree with plan. Patient's care is coordinated with Nellie BROWN. Please refer to the documentation above for details of patient's presentation and for discussion of other issues. I spent a total [id number] coordinating, documenting, and providing care for this patient excluding time spent in the performance of separately billed services or time spent by another provider/QHP.
[2025-01-23 15:11] LABS: Adenovirus PCR Not Detected (NotDetected); Bordetella parapertussis PCR Not Detected (NotDetected); Bordetella pertussis PCR Not Detected (NotDetected); Chlamydia pneumoniae PCR Not Detected (NotDetected); Coronavirus 229E PCR Not Detected (NotDetected); Coronavirus CoV-2 (COVID19)PCR Not Detected (NotDetected); Coronavirus HKU1 PCR Not Detected (NotDetected); Coronavirus NL63 PCR Not Detected (NotDetected); Coronavirus OC43PCR Not Detected (NotDetected); Human Metapneumovirus PCR Not Detected (NotDetected); Influenza A PCR Not Detected (NotDetected); Influenza B PCR Not Detected (NotDetected); Mycoplasma pneumoniae PCR Not Detected (NotDetected); Parainfluenza Virus 1 PCR Not Detected (NotDetected); Parainfluenza Virus 2 PCR Not Detected (NotDetected); Parainfluenza Virus 3 PCR DETECTED (NotDetected); Parainfluenza Virus 4 PCR Not Detected (NotDetected); Respiratory Syncytial VirusPCR Not Detected (NotDetected); Rhinovirus/Enterovirus PCR Not Detected (NotDetected)
--- NOTE | 2025-01-23 15:54 | XRay Report ---
XR sinus min 3V routine CLINICAL HISTORY: congestion, cough COMPARISON STUDY: Head CT earlier today FINDINGS: The mild mucosal thickening in the right sphenoid air cell seen on the CT earlier today is not visualized by plain film. Paranasal sinuses appear grossly clear. IMPRESSION: Grossly clear paranasal sinuses. ACT 112: Negative or not required by law. Electronically signed by: Brandan Maya M.D. 01/23/2025 3:53 PM
[2025-01-23] MEDS ORDERED: ALUMINUM/MAGNESIUM SUSP 30 ML UDC PO PRN (15:58)
[2025-01-23] MEDS ORDERED: MAGNESIUM HYDROXIDE SUSP 30 ML UDC PO PRN (15:58)
[2025-01-23] MEDS ORDERED: POLYETHYLENE (MIRALAX) 17 GM PACK PO PRN (15:58)
[2025-01-23] MEDS ORDERED: ONDANSETRON INJ 2 MG/ML 2 ML VIAL IV PRN (15:58)
[2025-01-23 16:01] LABS: Base Excess VBG -0.2 mEq/L; HCO3 VBG 26 mmol/L; Oxygen Saturation VBG < 60.0 %; PCO2 VBG 47 mmHg (38-50); PO2 VBG 31 mmHg; pH VBG 7.35 (7.36-7.41)
[2025-01-23] MEDS: SODIUM CHLORIDE 0.9% 1,000 ML IV ONE (16:13)
[2025-01-23] MEDS ORDERED: SODIUM PHOSPHATE 3 MMOL/1 ML INFUSION IV ONE (16:30)
[2025-01-23] MEDS ORDERED: LEVALBUTEROL HCL 0.63 MG/3 ML NEB NEB PRN (16:39)
[2025-01-23] MEDS: AMOXICILLIN/CLAVULANATE 875 MG TAB PO SCH (16:46)
[2025-01-23] MEDS: GADOBUTROL 65ML VIAL IV ONE (17:51)
--- NOTE | 2025-01-23 18:08 | XCELERA ---
[id number]
[2025-01-23] MEDS: SODIUM PHOSPHATE 21 MMOL in SODIUM CHLORIDE 0.9% 500 ML IV ONE (18:42)
--- NOTE | 2025-01-23 19:27 | Magnetic Resonance Report ---
EXAM: MR brain IAC wo/w con CLINICAL HISTORY: Mental status change TECHNIQUE: MRI of the brain and IAC was performed with and without intravenous contrast administration 8 mL Gadavist given. Sequences obtained include pre-contrast and post-contrast T1-weighted, T2-weighted, FLAIR (Fluid-Attenuated Inversion Recovery), DWI (Diffusion-Weighted Imaging), and ADC (Apparent Diffusion Coefficient) sequences. COMPARISON: 09/30/2021. FINDINGS: Brain Parenchyma: No evidence of acute infarction or hemorrhage. Sauceda-white matter differentiation is preserved. No abnormal signal-intensity lesions were identified. Post-Contrast Findings: No abnormal enhancement of the brain parenchyma or meninges. Ventricles and Sulci: Ventricular system is within normal limits without evidence of hydrocephalus. Sulci and cisternal spaces are age-appropriate. Brainstem and Cerebellum: Normal appearance of the brainstem and cerebellum without focal lesions or abnormal enhancement. Both internal auditory canals are unremarkable. Vessels: Intracranial vessels appear normal without evidence of vascular malformations or aneurysms. Skull and Calvarium: No evidence of skull vault lesions or abnormal marrow signal within the calvarium. IMPRESSION: 1. Normal brain parenchyma and structures. 2. No evidence of acute intracranial pathology or abnormal contrast enhancement. 3. No interval changes. Electronically signed by Greyson Cr 01-23-2025 7:27 PM
[2025-01-23] MEDS: HEPARIN SOD 5,000 UNIT/0.5 ML VIAL SQ SCH (20:08)
[2025-01-23] MEDS: ATORVASTATIN 40 MG TAB PO SCH (20:09)
[2025-01-23] MEDS: ADVANCED PROBIOTIC 625 MG CAPSULE PO SCH (20:10)
--- NOTE | 2025-01-24 04:42 | Electrocardiogram Report ---
Test Reason : Blood Pressure : */* mmHG Vent. Rate : 72 BPM Atrial Rate : 72 BPM P-R Int : 118 ms QRS Dur : 90 ms QT Int : 408 ms P-R-T Axes : 56 11 36 degrees QTcB Int : 446 ms Normal sinus rhythm Normal ECG When compared with ECG of 01-Aug-2022 20:31, No significant change was found Confirmed by Washington Sainz ([id number]) on 01/24/2025 4:42:06 AM Referred By: REFERRED SELF Confirmed By: Washington Sainz
[2025-01-24] MEDS: LEVOTHYROXINE SODIUM 88 MCG TABLET PO SCH (06:08)
[2025-01-24 07:14] LABS: Hematocrit (blood only) 42.4 % (37.0-47.0); Hemoglobin 14.5 g/dl (12.0-16.0); Mean Corpuscular Hemoglobin 31.4 pg (25.0-34.0); Mean Corpuscular Hgb Conc 34.2 g/dL (32.0-36.0); Mean Corpuscular Volume 91.8 fL (80.0-100.0); Mean Platelet Volume 9.7 fL (9.4-12.4); Platelet Count 330 K/uL (130-400); RDW Coefficient of Variation 13.2 % (11.5-14.5); RDW Standard Deviation 43.9 fL (36.4-46.3); Red Blood Count 4.62 M/uL (4.20-5.40); White Blood Count 9.85 K/ul (4.8-10.8)
[2025-01-24 07:57] LABS: Calcium 8.8 mg/dl (8.6-10.3); Potassium 4.2 mmol/L (3.5-5.1)
[2025-01-24 08:03] LABS: Estimated Average Glucose 154 mg/dl
[2025-01-24 08:05] LABS: BUN Creatinine Ratio 14.5 (10-20); Chol HDL Ratio 3.8 (0-5); Creatinine Clr Calc Pharmacy 86.9 ml/min; Phosphorus 3.8 mg/dl (2.5-4.9)
[2025-01-24] MEDS: PROPRANOLOL HCL 20 MG TAB PO SCH (08:11)
[2025-01-24] MEDS: FLUTICASONE PROPIONATE NA SPR 16 GM BTL SCH (08:11)
[2025-01-24] MEDS: MONTELUKAST SODIUM 10 MG TABLET PO SCH (08:11)
[2025-01-24] MEDS: PANTOprazole 40 MG TAB PO SCH (08:11)
[2025-01-24] MEDS: FLUoxetine HCL 20 MG CAP PO SCH (08:11)
[2025-01-24] MEDS: ATOMOXETINE HCL 40 MG CAPSULE PO SCH (08:12)
[2025-01-24] MEDS: PSYLLIUM or GUAR GUM FIBER 4GM PACKET PO SCH (08:12)
[2025-01-24] MEDS: DEXTROMETHORPHAN POLYMR COMPLX 30 MG/5 ML UDP PO PRN (13:10)
[2025-01-24] MEDS: LEVALBUTEROL 1.25 MG/3 ML NEB NEB SCH (15:31)
--- NOTE | 2025-01-24 15:55 | Hospitalist Progress Note ---
Date of Service January 24, 2025 Assessment & Plan (1) Acute bronchitis: (2) Parainfluenza infection: (3) Acute confusion: Plan: Acute bronchitis due to parainfluenza infection Suspected sinusitis Generalized weakness, acute confusion in the setting of above 5/6 back to baseline mental status Brain MRI: no acute CVA CT angio head and neck: Unremarkable Echocardiogram: Normal LV size, mild concentric LVH LVEF 60 to 65% no regional wall motion abnormalities Normal RV size and function No significant valvular pathology Normal estimated PA and RA pressures for interatrial shunt Respiratory panel:(+)parainfluenza virus CXR: no pneumonia CT head: mild mucosal thickening of sphenoid and ethmoid sinuses Remains on room air, still having dry cough add Xopenex, mucinex, flutter valve and incentive spirometry continue Augmentin BID Day 10/28 (4) Dyslipidemia: Plan: Dyslipidemia: * Triglycerides 228, cholesterol 141, LDL 58, HDL 37 * Continue atorvastatin 40 mg * Follow-up with PCP (5) Diabetes: Plan: Diabetes * Hold Ozempic, last given last week * Random glucose elevated in the ED most likely from prolonged steroid treatment * Previous A1C unknown- patient reports history of oral anti-diabetics med management without insulin * A1C: 7.0 * Wondering if hypoglycemia could have contributed to patient's presentation will need to monitor blood glucose at home 2-3 times a day to rule out hypoglycemic episodes (6) Hypothyroid: Plan: Hypothyroidism: * Continue home levothyroxine * TSH 4.8, free T4 normal Plan DVT Ppx: SCD-Hermes stockings Code status: Full PCP: [facility]: lives [facility], possible d/c tomorrow Admission and Anticipated Discharge Date Admission Date: January 23, 2025 Subjective ff up for weakness, confusion episode, etc seen resting in bed, comfortable awake, alert, oriented x3 back to baseline mental status states she feels better overall but still has frequent coughing spells- could not expectorate no chest pain, dyspnea, palpitations, dizziness no fever/chills, headache, focal neurologic symptoms no other symptoms Review of Systems Review of Systems: all noted and negative except for above Physical Exam Physical Exam: General- oriented x 3, not in distress, speaks in sentences with no effort or accessory muscle use Eyes- anicteric Neck- no JVD Lungs- mild intermittent rhonchi no wheezing good air entry bilaterally Heart- normal rate, regular rhythm; no murmurs Abdomen- normal bowel sounds, nondistended, soft, nontender Extremities- no pretibial edema, no calf tenderness Neuro- alert, oriented x 3; no gross focal neurologic deficits Skin- warm & dry Results & Data Results & Data Vital Signs (Past 12 Hours) Vital Signs Temp Pulse Pulse Resp BP Pulse Ox O2 Del Method 01/24/25 15:33 36.7 C 85 18 103/65 94 Room Air 01/24/25 15:31 75 17 97 Room Air 01/24/25 14:07 76 01/24/25 12:16 Room Air 01/24/25 11:38 36.7 C 78 18 118/68 99 Room Air 01/24/25 07:48 36.8 C 73 18 132/76 93 Room Air 01/24/25 07:08 73 01/24/25 04:00 36.6 C 81 18 127/78 97 Room Air FiO2 01/24/25 15:33 01/24/25 15:31 21 01/24/25 14:07 01/24/25 12:16 01/24/25 11:38 01/24/25 07:48 01/24/25 07:08 01/24/25 04:00 all noted and reviewed including below
[2025-01-24] MEDS: guaiFENesin 600 MG TABCR PO SCH (21:03)
[2025-01-25] MEDS: LEVALBUTEROL HCL 0.63 MG/3 ML NEB NEB PRN (06:56)
[2025-01-25] MEDS: ACETAMINOPHEN 325 MG TAB PO PRN (07:57)
[2025-01-25] MEDS: BUDESONIDE 0.5 MG/2 ML VIAL (PULMICORT) NEB SCH (08:16)
[2025-01-25] MEDS: FORMOTEROL 20 MCG/2 ML VIAL NEB SCH (08:16)
[2025-01-25] MEDS: AZITHROMYCIN 250 MG TAB PO SCH (08:31)
[2025-01-25] MEDS: predniSONE 20 MG TAB PO SCH (08:31)
[2025-01-25 11:49] VITALS: BP 118/71; TEMP 98.2; O2SAT 98
[2025-01-25 13:18] VITALS: PULSE 84; RESP 17
--- NOTE | 2025-01-25 13:43 | Discharge Summary ---
Date of Service January 25, 2025 Admission HPI Per Admitting Provider 59 year old female with PMH DM Type II, Asthma, Hypothyroidism, Migraines presenting with weakness, confusion, fatigue. Brought to the ED by co-workers for stumbling gait, slow to respond to questions for several hours and possible numbness stating her legs felt heavy. Has been ill for several months including Flu A+ in October, then developed Bronchitis and treated with Azithromycin with brief relief of symptoms. Covid neg during this time. She was prescribed 3 separate courses of Prednisone since late October with the last dose finishing yesterday. Reports frontal headache,worse with leaning forward, fever, pro ductive cough, N/V, ear pain. Symptoms not improving with OTC mucinex, dayquil, nyquil. Has been taking these for over 1 week. Denies recent medication changes, falls, head injuries, dizziness, vision/hearing changes, memory issues, numbness/tingling, difficulty walking, sick contacts, chest pain, swelling, difficulty breathing, SOB, diarrhea, urinary symptoms, skin changes, bleeding issues. In the emergency department, she was slow to respond to questions, confused, weak, and reporting numbness. Hemodynamically stable with a mild elevation in WBC 11.35. Random gluc elevated, possibly following extended course of steroids. UA without signs of infection and with dehydration. Chest Xray negative. Head CT with no acute intracranial findings. Head and Neck CTA unremarkable. Although initially the patient presented with an acute change in mental status, her cognition improved by the time of my exam. She had a harsh, nonproductive cough with no associated hypoxia or distress. She reported maxillary sinus pressure, facial pain, and ear pain warranting further workup with [employer], Sinus Xray. History obtained from the patient and via external, electronic chart review for medication reconcile; the patient provided her EMR with the [facility]. Admission Exam Per Admitting Provider VITALS: Reviewed. WEIGHT/BMI reviewed. GEN: Healthy appearing, well-developed, NAD. PSYCH: Good Judgment. AOx3. Normal memory, mood, and affect. HEENT -Head: NC/AT; -Eyes: PERRL, EOMI. No discharge or redness; -Ears: External ears are normal. -Nose: Normal nares. No active rhinorrhea. -Mouth and throat: MMM. Normal gums, mucosa, palate,. Good dentition. NECK: Supple, with no masses. CV: RRR, no m/r/g. No peripheral swelling. Pulses strong throughout. LUNGS: CTAB, no w/r/c. Pulse ox stable on room air. Harsh cough, nonproductive. ABD: Soft, NT/ND, NBS, no masses or organomegaly. : N/A SKIN: Warm, well perfused. No skin rashes or abnormal lesions. MSK: No deformities EXT: No clubbing, cyanosis, or edema. NEURO: Normal muscle strength and tone. No focal deficits. Facial symmetry noted. CN II-XII grossly intact. Principal Diagnosis Acute bronchitis Parainfluenza infection Discharge Exam Constitutional: WD/WN, vitals as above, NAD, sitting up in bed, pleasant, conversing easily Respiratory: normal respiratory effort, lungs clear to auscultation, no wheeze, rales, rhonchi. Normal insp/exp effort, no accessory muscle use Cardiovascular: RRR, no murmur, no edema Vessels: no JVD or carotid bruit Chest: normal inspection of chest Abdomen: normal bowel sounds, soft, nontender, no hepatosplenomegaly Musculoskeletal: no cyanosis or clubbing, extremities motor strength 5/5 Skin: no rashes, warm and dry normal turgor Neurologic: PERRL, EOMI, accommodation nl, no face palsy, no dysarthria CN's II- XI intact bilaterally and moves all extremities Discharge Data Allergies Allergy/AdvReac Type Severity Reaction Status Date / Time metronidazole Allergy Severe Hives/Blist Unverified 01/23/25 13:58 ers acetaminophen Allergy Unknown Unknown - Unverified 01/23/25 13:58 [From Darvocet-N] On med list w/ [facility] adhesive Allergy Unknown contact Verified 01/23/25 13:58 dermatitis estrogens, conjugated Allergy Unknown Unknown - Unverified 01/23/25 13:58 [From Premarin] On med list w/ [facility] Pharm[facility] latex Allergy Unknown contact Verified 01/23/25 13:58 dermatitis Penicillins Allergy Unknown Unknown - Unverified 01/23/25 13:58 On med list / [facility] propoxyphene Allergy Unknown Unknown Verified 01/23/25 13:58 Sulfa (Sulfonamide Allergy Unknown Unknown Verified 01/23/25 13:58 Antibiotics) Consultations 01/23/25 12:31 ED Decision to Admit Stat Ordered Studies 01/23/25 09:01 CT head/brain wo con Stat CTA head w con [CT angio head w con] Stat CTA neck with con [CT angio neck with con] Stat 01/23/25 14:11 MRI brain [MR brain IAC wo/w con] Urgent Hospital Course (1) Acute bronchitis: (2) Parainfluenza infection: (3) Acute confusion: (4) Dyslipidemia: (5) Diabetes: (6) Hypothyroid: Plan Patient presented to the hospital with generalized weakness and confusion She underwent evaluation with CT head, CTA head and neck and brain MRI which did not show any acute finding. She was found to have parainfluenza virus. She was started on antibiotics, inhaler, nebulizer treatment with improvement in the symptoms. Budesonide (steroid) nebulizer was added to her medication regimen. She was asked to continue on her LABA/LAMA. She was also prescribed prednisone and antibiotic course. Patient was recommended to obtain pulmonology referral with her primary care doctor. Please note the above document was generated using voice recognition software. It may contain grammatical, syntax or spelling errors. Any formal questions or concerns about the content, text or information contained within the body of this dictation should be directly addressed to the provider for clarification Total Time Total Time Spent Total Time Spent (In Minutes): 45 Total Time Includes: Examination of the Patient, Discharge Planning, Medication Reconciliation, Communication With Other Providers and Other Discharge Plan Discharge Items Patient Disposition: Home - Self-Care Reason For Visit: WEAKNESS Discharge Diagnosis: (1) Acute bronchitis: (2) Parainfluenza infection: Condition on Discharge: Fair Activity: Resume your previous activity Non-emergency contact: Primary Care Provider Call non-emergency contact if: you have any medication questions and your symptoms worsen Follow-up/Referrals: Jasmyn Corral M.D. [Primary Care Provider] - Diet: Regular Addtl Attending Provider Instructions: You were admitted to the hospital due to parainfluenza infection and bronchitis. You are prescribed following medications; Use budesonide nebulizer solution 0.5 mg twice a day. Use lev albuterol nebulization as needed every 6 hours Take azithromycin 500 mg for 2 days Take Augmentin twice a day for 4 days Please follow-up with your primary care doctor and obtain referral for pulmonology Pending Studies at Discharge: No Stand-Alone Forms: My [facility], Work/School Release, Smoking Cessation Medications and DC Order Prescriptions: New azithromycin 250 mg Tablet 500 mg PO QAM 2 Days Qty: 4 0RF amoxicillin-pot clavulanate 875-125 mg Tablet 1 tab PO BIDM 4 Days Qty: 8 0RF levalbuterol HCl 0.63 mg/3 mL Solution For Nebulization 0.63 mg NEB Q6H PRN (Reason: shortness of breath or wheezing) Qty: 90 0RF prednisone 20 mg Tablet 40 mg PO DAILY 4 Days Qty: 8 0RF budesonide 0.5 mg/2 mL Suspension For Nebulization 0.5 mg NEB BIDR Qty: 60 0RF Continued propranolol 40 mg Tablet 40 mg PO DAILY vitamin B complex Tablet 1 tab PO QAM fluticasone propionate [Flonase Allergy Relief] 50 mcg/actuation [place],Suspension 1 spray INTRANASAL DAILY progesterone micronized [Prometrium] 100 mg Capsule 100 mg PO QAM multivitamin Tablet 1 tab PO DAILY atorvastatin 80 mg tablet 40 mg PO HS ascorbic acid (vitamin C) [Vitamin C] 1,000 mg Tablet 1 g PO Q OTHER DAY zinc acetate 50 mg (zinc) Capsule 50 mg PO QAM cetirizine [Zyrtec] 10 mg Tablet 10 mg PO DAILY levothyroxine 88 mcg tablet 88 mcg PO DAILYBB olopatadine 0.1 % Drops 1 drp OPHTHALMIC (EYE) BID Rx Instructions: separate doses by at least 6-8 hours omeprazole 20 mg capsule,delayed release(DR/EC) 40 mg PO DAILY montelukast 10 mg tablet 10 mg PO QAM fluoxetine 20 mg capsule 20 mg PO DAILY simethicone 80 mg Tablet,Chewable 80 mg PO ACHS psyllium husk [Fiber-Caps (psyllium husk)] 0.52 gram Capsule 0.52 g PO QAM atomoxetine [Strattera] 80 mg Capsule 80 mg PO QAM coQ10 (ubiquinol) 200 mg Capsule 400 mg PO QAM Stiolto Respimat 2.5-2.5 mcg/actuation mist 2 puff INHALATION DAILY biotin 5,000 mcg Tablet, Sublingual 5,000 mcg SUBLINGUAL QAM Wegovy 2.4 mg/0.75 mL Pen Injector 2 mg SUBCUT Q7D Rx Instructions: Thursday Lactobacillus acidophilus 1 billion cell Tablet 2,000 mmu cells PO BID Discharge Orders: Discharge Order (Routine); Ordered 01/25/25 Ordered By: Eugene Jimenez/Other Patient Handouts: Managing Type 2 Diabetes Admission Data Admit Date/Time: 01/23/25 12:42 Attending Provider: Eugene Max Admit Provider: Andrea Colon Primary Care Provider: Jasmyn Corral Other Providers: Andrea Colon Other Interventions: Discharge Summary Assessment (RN) Last Done: 01/25/25 12:37
== END 2025-01-25 14:10 | disposition home or self-care (01) | DRG 203 ==
LOC: ED 08:49 → SUATTDRO 12:42 → EDINP 12:42 → 2W 18:07